=== PATIENT | female | born 1990 ===

== ENCOUNTER 2017-04-26 16:49 | Emergency (ER) | payer SELFPAY ==
[2017-04-26 16:55] VITALS: BP 139/57; PULSE 111; RESP 18; TEMP 97; O2SAT 100
--- NOTE | 2017-04-26 17:07 | ED PDOC ---
HPI: General Adult Time Seen by Provider: 04/26/17 16:59 Chief Complaint (Nursing): Substance Abuse History Per: Other (Brpought by [employer] after traffic stop revealed pt with erratic behavior. Pt states she was picking her kids up after school. Denies alcohol or drug use today.) Past Medical History Vital Signs: Last Vital Signs Temp 97.0 F L 04/26/17 16:51 Pulse 111 H 04/26/17 16:51 Resp 18 04/26/17 16:51 BP 139/57 L 04/26/17 16:51 Pulse Ox 100 04/26/17 17:06 - Medical History PMH: No Chronic Diseases - Family History Family History: States: Unknown Family Hx - Allergies Allergies/Adverse Reactions: Allergies Allergy/AdvReac Type Severity Reaction Status Date / Time No Known Allergies Allergy Verified 04/26/17 16:51 Review of Systems Cardiovascular: Negative for: Chest Pain Respiratory: Negative for: Shortness of Breath Gastrointestinal: Negative for: Abdominal Pain Neurological: Negative for: Headache, Dizziness Physical Exam - Physical Exam Appears: Positive for: Non-toxic, No Acute Distress Head Exam: Positive for: ATRAUMATIC, NORMAL INSPECTION, NORMOCEPHALIC Skin: Positive for: Normal Color, Warm, DRY Eye Exam: Positive for: EOMI, PERRL Neck: Positive for: Normal, Painless ROM Cardiovascular/Chest: Positive for: Regular Rate, Rhythm Extremity: Positive for: Normal ROM Neurologic/Psych: Positive for: Alert, Mood/Affect (Colorful, joking). Negative for: Motor/Sensory Deficits - ECG O2 Sat by Pulse Oximetry: 100 Disposition - Clinical Impression Clinical Impression: Polysubstance abuse - Patient ED Disposition Is Patient to be Admitted: No Counseled Patient/Family Regarding: Diagnosis, Need For Followup - Disposition Disposition: Discharged/Transfer to Law Enforcement Disposition Time: 18:07 Condition: FAIR Additional Instructions: Medically and psychiatrically stable for incarceration Instructions: Polysubstance Abuse (ED) Forms: [employer] Mobile Apps (Welsh)
== END 2017-04-26 18:31 ==
LOC: H.ER 16:49
DX: Z02.89 Encounter for other administrative examinations (principal); F19.10 Other psychoactive substance abuse, uncomplicated
CPT/HCPCS: 81025; 99283; G0480